=== PATIENT | female | born 1960 | race Caucasian/White ===

== ENCOUNTER → 2020-06-21 09:51 | Outpatient (BNVA) | payer BC, SELFPAY | PROVIDERS: PCP Internal Medicine; Visit Provider Internal Medicine Gastroenterology ==

== ENCOUNTER 2020-07-28 07:14 | Outpatient (REF) | payer OTHER, SELFPAY ==
[2020-07-28 11:08] LABS: MANUAL DIFF FLAG NO
[2020-07-28 11:24] LABS: Basophils Absolute Auto 0.1 X10*3/uL (0.0-0.2); Basophils Percent Auto 0.9 % (0-2); Eosinophils Absolute Auto 0.3 X10*3/uL (0.0-0.4); Eosinophils Percent Auto 5.7 % (0-4); Hematocrit 43.3 % (37-47); Hemoglobin 14.2 g/dl (12.0-16.0); Imm Gran Abs Auto 0.01 X10*3/uL (0.00-0.03); Imm Gran Pct Auto 0.2 % (0.0-0.4); Lymphocytes Absolute Auto 1.9 X10*3/uL (1.2-4.9); Lymphocytes Percent Auto 35.5 % (20-40); Mean Corpuscular HGB Conc 32.8 g/dl (31.0-35.0); Mean Corpuscular Hemoglobin 29.6 pg (27.0-33.0); Mean Corpuscular Volume 90.4 fL (80-98); Mean Platelet Volume 11.6 fL (9.4-12.3); Monocytes Absolute Auto 0.3 X10*3/uL (0.1-1.2); Monocytes Percent Auto 6.5 % (2-11); Neutrophils Absolute Auto 2.7 X10*3/uL (2.0-8.3); Neutrophils Percent Auto 51.2 % (45-73); Platelet Count 234 X10*3/uL (160-400); Red Blood Count 4.79 X10*6/uL (4.20-5.50); White Blood Count 5.3 X10*3/uL (4.8-10.8)
[2020-07-28 11:41] LABS: Alanine Aminotransferase 42 U/L (0-31); Albumin Level 4.6 g/dL (3.5-5.0); Alkaline Phosphatase 69 U/L (39-117); Anion Gap 13 (12-20); Aspartate Amino Transferase 32 U/L (5-31); Bilirubin Total 0.4 mg/dL (0.0-1.0); Blood Urea Nitrogen 12 mg/dL (9-16); C Reactive Protein 0.17 mg/dL (< or = 0.50); Calcium 9.2 mg/dL (8.4-10.2); Carbon Dioxide 27 mmol/L (22-29); Chloride 106 mmol/L (96-108); Estimated Glomerular Filt Rate > 60; Glucose Random 106 mg/dL (60-115); Potassium 4.1 mmol/L (3.3-5.1); Sodium 142 mmol/L (135-145)
[2020-07-30 00:47] LABS: Transglutaminase IgA 1 U/mL
== END 2020-07-28 07:15 | disposition home or self-care (01) ==
LOC: HO.HMGCLDS 07:14
PROVIDERS: PCP Internal Medicine; Visit Provider Internal Medicine Gastroenterology
DX: R10.9 Unspecified abdominal pain (principal)
CPT/HCPCS: 36415; 80053; 83516; 85025; 86140

== ENCOUNTER 2020-08-05 08:07 | Outpatient (REF) | payer OTHER, SELFPAY ==
--- NOTE | ~2020-08-05 | CT_ITS ---
EXAMINATION: CT ABDOMEN AND PELVIS WITH CONTRAST CLINICAL INFORMATION: Unspecified abdominal pain COMPARISON: None TECHNIQUE: Multidetector volumetric images were obtained from the superior aspect of the liver through the pubic symphysis following administration 85 mL of Omnipaque 350 intravenous contrast. Sagittal and coronal reformatted images were obtained on the technologist's workstation. Oral contrast: Yes This CT examination was performed using dose optimization techniques as appropriate, variously including the following: *Automated exposure control *Adjustment of mA and/or kV according to patient size (this includes techniques or standardized protocols for targeted exams where dose is matched to indication/reason for exam; i.e. extremities or head) *Use of iterative reconstruction technique DLP: 262 mGy-cm FINDINGS: LUNG BASES: The visualized lung bases are unremarkable. LIVER, GALLBLADDER, AND BILIARY TREE: The liver is normal in size, shape, and attenuation. There is a 1.4 cm cyst within hepatic segment 3 as well as two subcentimeter hypodensities at the liver dome which fall to small to characterize likely represent cysts. There is a small geographic region of low attenuation adjacent to the falciform ligament most compatible with fatty infiltration. There is no intra or extrahepatic duct dilation. The gallbladder surgically absent PANCREAS: Unremarkable. SPLEEN: Unremarkable. ADRENAL GLANDS: Unremarkable. KIDNEYS AND URETERS: The kidneys are normal in size, shape, and attenuation. No hydronephrosis, hydroureter, or calculi seen. No perinephric stranding. BLADDER: Unremarkable. GASTROINTESTINAL TRACT: Distal esophagus and stomach are unremarkable. The small and large bowel are normal in course and caliber. There is colonic diverticulosis throughout the sigmoid colon. There is equivocal mild wall thickening suggestive of chronic diverticular disease, though there are no inflammatory changes to suggest acute diverticulitis. There is a normal appendix. ABDOMINAL WALL: No significant hernia is appreciated. LYMPH NODES: Normal. VASCULAR: Unremarkable. PELVIC VISCERA: The uterus is retroflexed. The adnexa are unremarkable. OSSEOUS STRUCTURES: Minimal spondylotic endplate change. There is no acute or aggressive bony abnormality identified. CT/CT abdomen pelvis w con IMPRESSION: Sigmoid colonic diverticulosis. There is equivocal mild wall thickening suggestive of chronic diverticular disease, though there is no inflammatory change to suggest acute diverticulitis. Hepatic cysts and subcentimeter hypodensities which are too small to definitively characterize. Post cholecystectomy changes.
[2020-08-05] MEDS: Barium Sulfate Oral (Mocha) 450 ML ORAL.SUSP 900 ML PO (11:01)
== END 2020-08-05 08:08 | disposition home or self-care (01) ==
LOC: HO.CT 08:07
PROVIDERS: PCP Internal Medicine; Visit Provider Internal Medicine Gastroenterology
DX: R10.9 Unspecified abdominal pain (principal)
CPT/HCPCS: 74177; Q9967

== ENCOUNTER → 2020-08-30 12:54 | Outpatient (BNVA) | payer OTHER, SELFPAY | PROVIDERS: PCP Internal Medicine; Visit Provider Internal Medicine Gastroenterology ==

== ENCOUNTER 2020-09-16 08:48 | Outpatient (REF) | payer OTHER, SELFPAY ==
--- NOTE | ~2020-09-16 | XR_ITS ---
EXAMINATION: XR HIP, LEFT CLINICAL INFORMATION: Pain COMPARISON: None TECHNIQUE: Two views of the left hip. FINDINGS: Bone alignment is normal. No fracture or dislocation is seen. There may be mild axial joint space narrowing. No osteophytes or erosions are seen. The soft tissues are unremarkable. XR/XR hip LT min 2V IMPRESSION: Mild joint space narrowing otherwise unremarkable exam.
== END 2020-09-16 08:49 | disposition home or self-care (01) ==
LOC: HO.HMGCX 08:48
PROVIDERS: PCP Internal Medicine; Visit Provider Internal Medicine
DX: M25.552 Pain in left hip (principal)
CPT/HCPCS: 73502

== ENCOUNTER 2021-02-11 06:50 | Outpatient (REF) | payer OTHER, SELFPAY ==
[2021-02-11 11:48] LABS: Blood Urea Nitrogen 12 mg/dL (9-16); Estimated Glomerular Filt Rate > 60
== END 2021-02-11 06:51 | disposition home or self-care (01) ==
LOC: HO.HMGCLDS 06:50
PROVIDERS: PCP Internal Medicine; Visit Provider Internal Medicine
DX: R56.9 Unspecified convulsions (principal)
CPT/HCPCS: 36415; 82565; 84520

== ENCOUNTER 2021-02-15 14:11 | Outpatient (REF) | payer OTHER, SELFPAY ==
--- NOTE | ~2021-02-15 | MR_ITS ---
MR BRAIN WITHOUT AND WITH CONTRAST CLINICAL INFORMATION: Convulsions. COMPARISON: None available. TECHNIQUE: Multiplanar, multisequence MRI of the brain was obtained before and after the intravenous administration of 6 mL Gadavist. FINDINGS: There is no pathologic intracranial enhancement. Incidental developmental venous anomaly within the left centrum semiovale. There is no hydrocephalus, extra-axial surface collection, or herniation. Hippocampi are symmetric in size and normal in morphology without intrinsic signal abnormality. A few punctate foci of T2 signal change within the bifrontal white matter are nonspecific. The major flow voids at the skull base are preserved. There is no acute infarct on diffusion-weighted imaging. There is no intracranial hemorrhage on the gradient recalled echo acquisition. The midline structures are normal. The cerebellar tonsils are normally positioned. The cerebellum and brainstem are normal. The craniocervical junction is normal. Osseous marrow signal intensity is homogenous. The visualized soft tissues are unremarkable. MR/MR head/brain wo/w con IMPRESSION: - No acute intracranial findings. No enhancing lesions. No mesial temporal sclerosis. - A few punctate foci of T2 signal change within the bifrontal white matter are nonspecific.
== END 2021-02-15 14:12 | disposition home or self-care (01) ==
LOC: HO.MRI 14:11
PROVIDERS: PCP Internal Medicine; Visit Provider Internal Medicine
DX: R56.9 Unspecified convulsions (principal)
CPT/HCPCS: 70553; A9585

== ENCOUNTER 2021-03-17 15:21 | Outpatient (REF) | payer OTHER, SELFPAY ==
--- NOTE | ~2021-03-17 | US_ITS ---
EXAMINATION: US EXTRACRANIAL CAROTID DUPLEX, BILATERAL CLINICAL INFORMATION: Unspecified convulsions COMPARISON: None TECHNIQUE: Real-time ultrasound and Doppler techniques (integrating B-mode 2-D vascular images, Doppler spectral analysis and color-flow Doppler imaging) were utilized to interrogate the extracranial carotid arteries, the vertebral arteries and proximal subclavian arteries bilaterally. The degree of stenosis is determined by criteria similar to NASCET. FINDINGS: Right Side: 1. There is no significant atherosclerotic plaque seen in the bifurcation/proximal ICA region. 2. The common carotid artery PSV proximally is 77 cm/s and distally 70 cm/s. 3. The proximal internal carotid artery velocities are 57 cm/s systolic and 20 cm/s diastolic. 4. The proximal external carotid artery PSV is 71 cm/s. 5. The vertebral artery shows antegrade flow. 6. The subclavian artery waveforms are normal. Left Side: 1. There is no significant atherosclerotic plaque seen in the bifurcation/proximal ICA region. 2. The common carotid artery PSV proximally is 83 cm/s and distally 90 cm/s. 3. The proximal internal carotid artery velocities are 86 cm/s systolic and 33 cm/s diastolic. 4. The proximal external carotid artery PSV is 84 cm/s. 5. The vertebral artery shows antegrade flow. 6. The subclavian artery waveforms are normal. US/US carotid duplex BI IMPRESSION: 1. RIGHT: Normal right internal carotid artery without atherosclerotic plaque or hemodynamically significant stenosis. 2. LEFT: Normal left internal carotid artery without atherosclerotic plaque or hemodynamically significant stenosis.
== END 2021-03-17 15:22 | disposition home or self-care (01) ==
LOC: HO.US 15:21
PROVIDERS: PCP Internal Medicine; Visit Provider Internal Medicine
DX: R56.9 Unspecified convulsions (principal); E78.5 Hyperlipidemia, unspecified
CPT/HCPCS: 93880

== ENCOUNTER 2021-04-07 12:57 | Outpatient (REF) | payer OTHER, SELFPAY ==
--- NOTE | 2021-04-07 13:08 | EEG_ITS ---
The waking background activity consists of a diffuse moderate to high voltage dominant beta frequency which would possibly be a medication effect. Alpha frequencies at 8 hertz appear briefly over the left hemisphere towards the end of the recording. Low-voltage fast frequencies and muscle artifacts predominate anteriorly. Photic stimulation is without activation. Hyperventilation was omitted. No focal, lateralizing, or paroxysmal discharges seen. IMPRESSION: This waking EEG is considered within normal limits. Excessive beta frequency could be a medication effect. Clinical correlation is suggested. MD KRISTAL Boyd/MELISSA / [id number]
== END 2021-04-07 12:58 | disposition home or self-care (01) ==
LOC: HO.NEURO 12:57
PROVIDERS: Visit Provider Internal Medicine
DX: R56.9 Unspecified convulsions (principal)
CPT/HCPCS: 95816

== ENCOUNTER 2021-08-04 16:03 | Outpatient (REF) | payer OTHER, SELFPAY ==
--- NOTE | ~2021-08-04 | MM_ITS ---
EXAMINATION: MM SCREENING DIGITAL BREAST TOMOSYNTHESIS, BILATERAL CLINICAL INFORMATION: Screening. Asymptomatic. The lifetime risk of breast cancer based on the Tyrer-Cuzick Model is 8%. COMPARISON: Mammography: 10/24/2019, 09/27/2017, 08/07/2016. TECHNIQUE: Digital breast tomosynthesis is performed in both the craniocaudal and mediolateral oblique views along with computer-aided detection (CAD). Synthesized 2D images are generated from the tomosynthesis. FINDINGS: The breasts are heterogeneously dense, which may obscure small masses (ACR BI-RADS breast composition Category c). Parenchymal pattern is similar to prior exams. There is no developing density or interval mass or architectural abnormality or significant mass. There are scattered bilateral round and some vascular calcifications. The axilla and skin contours are unremarkable. No significant changes. MM/MM tomosynthesis screening BI IMPRESSION: No mammographic evidence of malignancy. ASSESSMENT: BI-RADS 2: Benign RECOMMENDATION: Routine annual mammography screening. This patient's information was entered into a reminder system with a target due date for their next mammogram.
== END 2021-08-04 16:04 | disposition home or self-care (01) ==
LOC: HO.MAMMO 16:03
PROVIDERS: PCP Internal Medicine; Visit Provider Internal Medicine
DX: Z12.31 Encounter for screening mammogram for malignant neoplasm of breast (principal)
CPT/HCPCS: 77063; 77067

== ENCOUNTER 2022-05-25 06:47 | Outpatient (REF) | payer OTHER, SELFPAY ==
[2022-05-25 11:21] LABS: MANUAL DIFF FLAG NO
[2022-05-25 11:34] LABS: Color Urine Yellow; Glucose Urine UA Negative (Negative); Leukocyte Esterase Urine Negative (Negative); Nitrite Urine Negative (Negative); PH 6.5 (5.0-9.0); Specific Gravity - Urine <= 1.005 (1.005-1.025); UMIC TRIGGER UA YES; Urine Blood Trace (Negative); Urine Ketones Negative (Negative); Urine Protein Negative (Neg-Trace)
[2022-05-25 11:37] LABS: Appearance Urine Clear
[2022-05-25 11:41] LABS: Bacteria Urine None Seen (None Seen); Hyaline Casts Urine 0-2 /LPF (0-2); RBC Urine 0-2 /HPF (0-2); Squamous Epithelial Cell Urine 0-2 /HPF (0-2); WBC Urine 0-5 /HPF (0-5)
[2022-05-25 11:45] LABS: Basophils Absolute Auto 0.1 X10*3/uL (0.0-0.2); Basophils Percent Auto 0.9 % (0-2); Eosinophils Absolute Auto 0.3 X10*3/uL (0.0-0.4); Eosinophils Percent Auto 4.6 % (0-4); Hematocrit 45.2 % (37.0-47.0); Hemoglobin 14.8 g/dl (12.0-16.0); Imm Gran Abs Auto 0.01 X10*3/uL (0.00-0.03); Imm Gran Pct Auto 0.2 % (0.0-0.4); Lymphocytes Absolute Auto 1.9 X10*3/uL (1.2-4.9); Lymphocytes Percent Auto 35.9 % (20-40); Mean Corpuscular HGB Conc 32.7 g/dl (31.0-35.0); Mean Corpuscular Hemoglobin 29.7 pg (27.0-33.0); Mean Corpuscular Volume 90.8 fL (80.0-98.0); Mean Platelet Volume 11.5 fL (9.4-12.3); Monocytes Absolute Auto 0.4 X10*3/uL (0.1-1.2); Monocytes Percent Auto 6.9 % (2-11); Neutrophils Absolute Auto 2.8 x10*3/uL (2.0-8.3); Neutrophils Percent Auto 51.5 % (45-73); Platelet Count 243 X10*3/uL (160-400); Red Blood Count 4.98 X10*6/uL (4.20-5.50); Red Cell Distribution Width 13.3 % (11.0-16.0); White Blood Count 5.4 X10*3/uL (4.8-10.8)
[2022-05-25 12:16] LABS: Alanine Aminotransferase 28 U/L (0-31); Albumin Level 4.7 g/dL (3.5-5.0); Alkaline Phosphatase 67 U/L (39-117); Anion Gap 13 (12-20); Aspartate Amino Transferase 25 U/L (5-31); Bilirubin Total 0.5 mg/dL (0.0-1.0); Blood Urea Nitrogen 12 mg/dL (9-16); Calcium 9.9 mg/dL (8.4-10.2); Carbon Dioxide 26 mmol/L (22-29); Chloride 107 mmol/L (96-108); Cholesterol 207 mg/dL; Estimated Glomerular Filt Rate > 60; Glucose Fasting 110 mg/dL (60-99); HDL Cholesterol 61 mg/dL; LDL Cholesterol Calculated 130 mg/dl; Sodium 142 mmol/L (135-145); Total Protein 7.1 g/dL (6.5-8.0); Triglycerides 82 mg/dL
[2022-05-25 12:20] LABS: TSH reflex Free T4 2.39 uIU/mL (0.32-4.0)
== END 2022-05-25 06:48 | disposition home or self-care (01) ==
LOC: HO.HMGCLDS 06:47
PROVIDERS: PCP Internal Medicine; Visit Provider Internal Medicine
DX: Z00.00 Encounter for general adult medical examination without abnormal findings (principal); R56.9 Unspecified convulsions; E78.5 Hyperlipidemia, unspecified
CPT/HCPCS: 36415; 80053; 80061; 81001; 84443; 85025

== ENCOUNTER 2022-06-06 10:28 | Outpatient (REF) | payer OTHER, SELFPAY ==
[2022-06-10 03:18] LABS: HPV mRNA E6/E7 Detected (Not Detected)
== END 2022-06-06 10:29 | disposition home or self-care (01) ==
LOC: HO.LNP 10:28
PROVIDERS: Visit Provider Internal Medicine
DX: Z01.419 Encounter for gynecological examination (general) (routine) without abnormal findings (principal); Z11.51 Encounter for screening for human papillomavirus (HPV)
CPT/HCPCS: 87624; 88142

== ENCOUNTER 2022-07-06 09:23 | Outpatient (REF) | payer OTHER, SELFPAY ==
[2022-07-06 15:07] LABS: CT PCR NOT DETECTED (Not Detect.); NG PCR NOT DETECTED (Not Detect.)
== END 2022-07-06 09:24 | disposition home or self-care (01) ==
LOC: HO.LNP 09:23
PROVIDERS: PCP Internal Medicine; Visit Provider Obstetrics & Gynecology
DX: R10.2 Pelvic and perineal pain (principal); B97.7 Papillomavirus as the cause of diseases classified elsewhere; R31.29 Other microscopic hematuria
CPT/HCPCS: 0353U; 87086

== ENCOUNTER 2022-07-25 11:15 | Outpatient (REF) | payer OTHER, SELFPAY ==
--- NOTE | ~2022-07-25 | US_ITS ---
EXAMINATION: US PELVIS CLINICAL INFORMATION: Pelvic and perineal pain. COMPARISON: CT abdomen and pelvis 08/05/2021. TECHNIQUE: Ultrasound of the pelvis is performed using both transabdominal and transvaginal transducers along with Doppler. Transvaginal imaging is performed due to inadequate visualization transabdominally. FINDINGS: Uterus: The uterus is anteverted and retroflexed and measures 7.0 x 3.7 x 4.6 cm. Uterine volume is 62 mL. There are nabothian cysts in the cervix. The double wall endometrial thickness is 3 mm. There is a right cornual fibroid measuring 2.3 x 1.8 x 2.1 cm. There is a midline fundal fibroid measuring 1.3 x 1.0 x 1.1 cm. Adnexa: The right ovary measures 1.5 x 1.2 x 1.6 cm, volume 1.5 mL. The right ovary appears normal. The left ovary measures 2.0 x 1.0 x 1.7 cm, volume 1.8 mL. There is a 1.1 cm coarse calcification, possibly representing a dermoid. In retrospect a similar finding is subtly visible on prior CT and there has likely been no significant change. US/US pelvic and transvaginal IMPRESSION: Fibroid uterus. Coarse calcification in the left ovary, possibly representing a dermoid. In retrospect a similar finding is subtly visible on prior CT and there has likely been no significant change.
== END 2022-07-25 11:16 | disposition home or self-care (01) ==
LOC: HO.US 11:15
PROVIDERS: PCP Internal Medicine; Visit Provider Obstetrics & Gynecology
DX: R10.2 Pelvic and perineal pain (principal)
CPT/HCPCS: 76830; 76856

== ENCOUNTER → 2022-08-08 10:08 | Outpatient (BNVA) | payer OTHER, SELFPAY | PROVIDERS: PCP Internal Medicine; Visit Provider Obstetrics & Gynecology | DX: Z13.89 Encounter for screening for other disorder (principal) ==

== ENCOUNTER 2022-08-09 06:30 | Outpatient (REF) | payer OTHER, SELFPAY ==
[2022-08-11 09:03] LABS: CA-125 10 U/mL (<35)
== END 2022-08-09 06:31 | disposition home or self-care (01) ==
LOC: HO.HMGCLDS 06:30
PROVIDERS: PCP Internal Medicine; Visit Provider Obstetrics & Gynecology
DX: N83.299 Other ovarian cyst, unspecified side (principal)
CPT/HCPCS: 36415; 86304

== ENCOUNTER 2022-08-10 16:06 | Outpatient (REF) | payer OTHER, SELFPAY ==
--- NOTE | ~2022-08-10 | MM_ITS ---
EXAMINATION: MM SCREENING DIGITAL BREAST TOMOSYNTHESIS, BILATERAL CLINICAL INFORMATION: Screening. Asymptomatic. The lifetime risk of breast cancer based on the Tyrer-Cuzick Model is 10.5%. COMPARISON: Mammography: August 04, 2021 and studies dating back to August 07, 2016 TECHNIQUE: Digital breast tomosynthesis is performed in both the craniocaudal and mediolateral oblique views along with computer-aided detection (CAD). Synthesized 2D images are generated from the tomosynthesis. FINDINGS: The breasts are heterogeneously dense, which may obscure small masses (ACR BI-RADS breast composition Category c). There are no new significant masses, abnormal calcifications, or other abnormalities. MM/MM tomosynthesis screening BI IMPRESSION: No significant changes from prior exam. ASSESSMENT: BI-RADS 1: Negative RECOMMENDATION: Routine annual mammography screening. This patient's information was entered into a reminder system with a target due date for their next mammogram.
== END 2022-08-10 16:07 | disposition home or self-care (01) ==
LOC: HO.MAMMO 16:06
PROVIDERS: PCP Internal Medicine; Visit Provider Internal Medicine
DX: Z12.31 Encounter for screening mammogram for malignant neoplasm of breast (principal)
CPT/HCPCS: 77063; 77067

== ENCOUNTER 2022-09-08 12:59 | Outpatient (REF) | payer OTHER, SELFPAY ==
--- NOTE | ~2022-09-08 | MR_ITS ---
EXAMINATION: MR PELVIS WITHOUT AND WITH CONTRAST CLINICAL INFORMATION: Ovarian cyst COMPARISON: 07/25/2022 ultrasound and 08/05/2020 CT scan TECHNIQUE: Multiple routine MRI sequences through the pelvis were obtained on a high-field 1.5 Brenda MRI. Pre and postcontrast images were evaluated. 9 mL of Gadavist intravenous contrast was utilized without incident. FINDINGS: Uterus is retroverted and retroflexed measuring 6.4 x 3.9 x 5.2 cm in size. Endometrial cavity is unremarkable. Endometrial stripe is thin and distinct. Several small T2 dark intramural fibroids are noted. The largest of these is a 1.7 cm anterior right fundal fibroid which demonstrates mild postcontrast enhancement. The left ovary is difficult to separate from the adjacent sigmoid colon but measures approximately 1.7 x 0.9 x 1.2 cm in size. There are a few tiny precontrast T1 bright foci seen within the ovary suggesting tiny regions of blood products. There is no discrete mass otherwise. No abnormal enhancement or irregularity. Extensive colonic diverticulosis more so in the sigmoid colon. Bladder is decompressed and unremarkable. No acute bony abnormality. The contralateral right ovary is also difficult to separate from adjacent structures but measures approximately 1.5 x 1.3 x 1.1 cm in size. MR/MR pelvis wo/w con IMPRESSION: 1. Small intramural uterine fibroids as described above. The left ovary is difficult to separate from the adjacent sigmoid colon. There are a few tiny precontrast T1 bright foci within the left ovary suggesting tiny regions of blood products. But no discrete mass lesion or abnormal enhancement is appreciated on MRI. The small calcification suggested on the ultrasound would not be apparent on the MR. 2. Extensive colonic diverticulosis.
== END 2022-09-08 13:00 | disposition home or self-care (01) ==
LOC: HO.MRI 12:59
PROVIDERS: PCP Internal Medicine; Visit Provider Obstetrics & Gynecology
DX: N83.299 Other ovarian cyst, unspecified side (principal)
CPT/HCPCS: 72197; A9585

== ENCOUNTER → 2022-09-21 09:46 | Outpatient (BNVA) | payer OTHER, SELFPAY | PROVIDERS: PCP Internal Medicine; Visit Provider Obstetrics & Gynecology ==

== ENCOUNTER 2023-02-14 10:50 | Outpatient (REF) | payer OTHER, SELFPAY ==
--- NOTE | ~2023-02-14 | US_ITS ---
EXAMINATION: US PELVIS COMPLETE CLINICAL INFORMATION: Ovarian calcification COMPARISON: None TECHNIQUE: Transabdominal and transvaginal imaging was performed. FINDINGS: The uterus is of normal size and echogenicity measuring 7.3 x 3.5 x 4.8 cm. Uterus is retroflexed in position. A regular homogeneous endometrium is identified measuring 0.3 cm. A 1.7 cm intramural myoma in the posterior body decreased from prior previously 2.3 cm and a 1.1 cm intramural myoma in the left body decreased from prior study 1.3 cm. Nabothian cysts in the cervix. Both ovaries are of normal size. The right measures 1.8 x 1.5 x 1.0 cm for a volume of 1.4 mL. The left measures 2.3 x 0.9 x 2.2 cm for a volume of 2.4 mL. Again seen is a 1.1 cm echogenic shadowing focus in the left ovary which remains sonographically suspicious for an ovarian dermoid without prior correlate on MR, previously 1.1 cm on prior ultrasound not significantly changed. There is no pelvic free fluid. US/US pelvic and transvaginal IMPRESSION: 1. Again seen is a 1.1 cm echogenic shadowing focus in the left ovary which remains sonographically suspicious for an ovarian dermoid without prior correlate on MR, not significantly changed from prior ultrasound. Recommend annual follow-up ultrasound. 2. Two small intramural myomas decreased in size from prior.
== END 2023-02-14 10:51 | disposition home or self-care (01) ==
LOC: HO.US 10:50
PROVIDERS: PCP Internal Medicine; Visit Provider Obstetrics & Gynecology
DX: N83.8 Other noninflammatory disorders of ovary, fallopian tube and broad ligament (principal)
CPT/HCPCS: 76830; 76856

== ENCOUNTER 2023-02-27 09:12 | Outpatient (AMB) | payer OTHER, SELFPAY ==
[2023-02-27 09:14] VITALS: BP 112/74; BMI 25.4
--- NOTE | 2023-02-27 09:14 | MHC.OFFVIS ---
Intake Vital Signs 02/27/23 09:14 Height 5 ft 2 in Weight 139 lb BMI 25.4 BP 112/74 Intake Visit Reasons: US Follow Up Allergies penicillin V Allergy (Unknown, Verified 02/27/23 09:15) hives Erythromycin Allergy (Unknown, Uncoded 09/21/22 09:50) gi upset HPI HPI Comments History of Present Illness Details Presenting for ultrasound follow-up. Pelvic ultrasound done recently showed the following: The uterus is of normal size and echogenicity measuring 7.3 x 3.5 x 4.8 cm. Uterus is retroflexed in position. A regular homogeneous endometrium is identified measuring 0.3 cm. A 1.7 cm intramural myoma in the posterior body decreased from prior previously 2.3 cm and a 1.1 cm intramural myoma in the left body decreased from prior study 1.3 cm. Nabothian cysts in the cervix. Both ovaries are of normal size. The right measures 1.8 x 1.5 x 1.0 cm for a volume of 1.4 mL. The left measures 2.3 x 0.9 x 2.2 cm for a volume of 2.4 mL. Again seen is a 1.1 cm echogenic shadowing focus in the left ovary which remains sonographically suspicious for an ovarian dermoid without prior correlate on MR, previously 1.1 cm on prior ultrasound not significantly changed. There is no pelvic free fluid. US/US pelvic and transvaginal IMPRESSION: 1. Again seen is a 1.1 cm echogenic shadowing focus in the left ovary which remains sonographically suspicious for an ovarian dermoid without prior correlate on MR, not significantly changed from prior ultrasound. Recommend annual follow-up ultrasound. 2. Two small intramural myomas decreased in size from prior. CA 125 in 08/10 was within were [facility] Medical History HPV (human papilloma virus) infection Seizure Hip pain, left Tubular adenoma of colon Migraines Hyperlipidemia GERD (gastroesophageal reflux disease) Right sided abdominal pain Surgical History History of cholecystectomy History of esophagogastroduodenoscopy (EGD) Hx of colonoscopy Hx of oral surgery Family History Father Throat cancer Substance use disorder Mother Cardiac arrest Social History Household Members: Spouse Housing: House Alcohol intake: current Alcohol intake frequency: holidays/special occasions only Patient Tobacco Use Status: Former Tobacco user Years Smoked: 10 yrs e-Cigarette/Vaping Use: Never Used Substance Use Type: Marijuana Current occupational status: employed Cognitive needs: No Hearing needs: No Vision needs: Yes Review of Systems Const All systems reviewed & are unremarkable except as noted in HPI and below Reports as per HPI and Reports no additional complaints GI Reports no additional complaints Reports no additional complaints Physical Exam Vital Signs: Last Vital Signs BP 112/74 02/27/23 09:14 BMI result Body Mass Index 25.4 Assessment & Plan Assessment & Plan (1) Complex ovarian cyst: Comment: calcification possible dermoid by ultrasound Code(s): N83.299 - Other ovarian cyst, unspecified side Plan: Discussed with the patient the ovarian calcification by ultrasound, possible dermoid. Discussed with the patient the Ultrasound findings, the main limitation of transvaginal ultrasonography alone as a diagnostic tool to distinguish benign from malignant masses relates to its lack of specificity and low positive predictive value for cancer. The differential diagnosis discussed with the patient includes the following but not limited to: benign and malignant gynecological and non-gynecological causes. Will repeat CA 125. Discussed with the patient that CA 125 is a protein associated with epithelial ovarian malignancies, but also frequently expressed at lower levels by nonmalignant tissue. Elevation of CA 125 levels may occur in nonmalignant gynecologic conditions, and in non-gynecologic cancers, It is most useful in postmenopausal women and in identifying non mucinous epithelial cancer. The CA 125 level is elevated in 80% of patients with epithelial ovarian cancer but in only 50% of patients with stage I disease. The overall sensitivity of CA 125 testing in distinguishing benign from malignant adnexal masses reportedly ranges from 61% to 90%; discussed with the patient the specificity, positive predictive value and negative predictive value. Discussed with the patient options of treatment , in case CA 125 is not elevated, including laparoscopy ovarian cystectomy/oophorectomy vs. expectant management with repeat US in repeating pelvic US in 12 weeks from previous US. If the ovarian complex cyst is persistent larger and / or more complex looking, or higher CA 125 will refer to gynecologic Oncology. All pros, cons, risks and benefits of each approach were discussed with the patient including but not limited to a delay in the diagnosis and treatment of ovarian cancer affecting the prognosis; The patient decided to go ahead with expectant management. Instructions given the patient to schedule a 3 months follow-up ultrasound appointment. All questions were answered & the patient verbalized understanding and agreed with the plan. (2) Myoma: Code(s): D21.9 - Benign neoplasm of connective and other soft tissue, unspecified Plan: Discussed with the patient the findings on pelvic ultrasound & the risk of myosarcoma; discussed with the patient the options of treatment including expectant management versus hysterectomy; the pros and cons, risks benefits of each approach were discussed with the patient including the fact that in cases of myosarcoma, surgical treatment can lead to early diagnosis and positively affects the prognosis; after further discussion, the patient decided to proceed with expectant management. Will repeat pelvic ultrasound periodically. Instructions given to patient to call in case any of the following occurs: pressure symptoms, abnormal uterine bleeding, pelvic pain; and to schedule a future office follow-up appointment for reassessment and to order a repeat ultrasound . All questions answered, the patient verbalized understanding and agreed with the plan . Coding Level of Care Code Est Pt Level 3 (16915) Diagnoses Complex ovarian cyst N83.299 Myoma D21.9
== END 2023-02-27 09:31 | disposition home or self-care (01) ==
PROVIDERS: Visit Provider Obstetrics & Gynecology
DX: N83.299 Other ovarian cyst, unspecified side (principal); D21.9 Benign neoplasm of connective and other soft tissue, unspecified
CPT/HCPCS: 99213

== ENCOUNTER → 2023-02-27 09:12 | Outpatient (BNVA) | payer OTHER, SELFPAY | PROVIDERS: Visit Provider Obstetrics & Gynecology ==

== ENCOUNTER 2023-02-28 06:28 | Outpatient (REF) | payer OTHER, SELFPAY ==
[2023-03-02 10:13] LABS: CA-125 12 U/mL (<35)
== END 2023-02-28 06:29 | disposition home or self-care (01) ==
LOC: HO.HMGCLDS 06:28
PROVIDERS: Obstetrics & Gynecology; PCP Internal Medicine; Visit Provider Internal Medicine
DX: R73.9 Hyperglycemia, unspecified (principal); E78.5 Hyperlipidemia, unspecified; N83.8 Other noninflammatory disorders of ovary, fallopian tube and broad ligament
CPT/HCPCS: 36415; 80053; 80061; 83036; 85025; 86304

== ENCOUNTER 2023-03-07 09:48 | Outpatient (AMB) | payer OTHER, SELFPAY ==
--- NOTE | 2023-03-07 10:02 | MHC.PC.OV ---
Vital Signs 03/07/23 10:03 Height 5 ft 2 in Weight 140 lb BMI 25.6 BP 126/70 Blood Pressure Location Lt brachial Position Sitting Pulse 77 Pulse Source Pulse Oximeter Pulse Oximetry (%) 97 Oxygen Delivery Method Room Air Intake Visit Reasons: 6 Month follow up Intake Note: Pt is here today for her 6mo. f/u Allergies penicillin V Allergy (Unknown, Verified 02/27/23 09:15) hives Erythromycin Allergy (Unknown, Uncoded 09/21/22 09:50) gi upset Medication List - Last Reconciled 03/07/23 by Leticia Stanley MD pravastatin 30 mg (1.5 x 20 mg) PO DAILY triamcinolone acetonide 0.1% 1 appl topical DAILY Tobacco use date assessed: 03/07/23 Dental Screening Dental Screen Date: 03/07/23 Did you have a dental visit in the last 12 months?: Yes Did you have a dental problem in the last 6 months where you did not have access to dental care?: Yes Was dental information given to patient?: Patient has dentist HPI 6 Month follow up HPI Details Patient presents for the follow-up of hyperlipidemia. FORMERLY [facility], [facility] Medical History HPV (human papilloma virus) infection Seizure Hip pain, left Tubular adenoma of colon Migraines Hyperlipidemia GERD (gastroesophageal reflux disease) Right sided abdominal pain Surgical History History of cholecystectomy History of esophagogastroduodenoscopy (EGD) Hx of colonoscopy Hx of oral surgery Family History Father Throat cancer Substance use disorder Mother Cardiac arrest Social History Household Members: Spouse Housing: House Alcohol intake: current Alcohol intake frequency: holidays/special occasions only Patient Tobacco Use Status: Former Tobacco user Years Smoked: 10 yrs e-Cigarette/Vaping Use: Never Used Substance Use Type: Marijuana Current occupational status: employed Cognitive needs: No Hearing needs: No Vision needs: Yes Questionnaire Thrive Questionnaire Date Thrive assessed: 06/06/22 AUDIT C Alcohol Use Questionnaire (AUDIT-C) 1. How often do you have a drink containing alcohol?: Monthly or less 2. How many drinks containing alcohol do you have on a typical day when you are drinking?: 1 or 2 3. How often do you have six or more drinks on one occasion?: Never Total Score: 1 KELLY-7 AMB Questionnaire KELLY-7 Date KELLY - 7 assessed: 06/06/22 Source: Developed by Drs. Jamal Cleaning, Isela Schwarz, Manolo Waggoner and colleagues, with an educational haider from [employer] Review of Systems Const All systems reviewed & are unremarkable except as noted in HPI and below Reports no additional complaints Eyes Reports no additional complaints ENT Reports no additional complaints Card Reports no additional complaints Resp Reports no additional complaints GI Reports no additional complaints Reports no additional complaints Physical exam (Primary Care) Vital Signs: Last Vital Signs Pulse 77 03/07/23 10:03 BP 126/70 03/07/23 10:03 Pulse Ox 97 03/07/23 10:03 Oxygen Delivery Method Room Air 03/07/23 10:03 BMI result Body Mass Index 25.6 Tobacco/Smoking Status: Tobacco use Status Tobacco use date assessed 03/07/23 03/07/23 10:06 Patient Tobacco Use Status Former Tobacco user 03/07/23 10:06 e-Cigarette/Vaping Use Never Used 03/07/23 10:06 Thrive Assessment: Date of Thrive Assessment Date Thrive assessed 06/06/22 03/07/23 10:06 Const General: no acute distress HENMT Face and sinus: Yes normal facial exam Throat: Yes posterior oropharynx normal Resp Effort & Inspection: normal respiratory effort Auscultation: clear to auscultation bilaterally Cardio Rhythm: regular rhythm Heart sounds: S1 normal heart sound present and S2 normal heart sound present GI Palpation (GI): Soft to palpation Assessment and Plan Assessment & Plan (1) Hyperlipidemia: Code(s): E78.5 - Hyperlipidemia, unspecified Plan: Continue statin low-cholesterol diet return in 6 months with a fasting labs before (2) Annual physical exam: Code(s): Z00.00 - Encounter for general adult medical examination without abnormal findings (3) Hyperglycemia: Code(s): R73.9 - Hyperglycemia, unspecified Plan: ADA diet regular exercise weight loss discussed with the patient return in 6 months for physical Orders: Orders Hemoglobin A1c 6 Months E78.5 - Hyperlipidemia, unspecified, R73.9 - Hyperglycemia, unspecified, Z00.00 - Encounter for general adult medical examination without abnormal findings Comprehensive [place]. Panel Fast 6 Months E78.5 - Hyperlipidemia, unspecified, R73.9 - Hyperglycemia, unspecified, Z00.00 - Encounter for general adult medical examination without abnormal findings Complete Blood Count Auto Diff 6 Months E78.5 - Hyperlipidemia, unspecified, R73.9 - Hyperglycemia, unspecified, Z00.00 - Encounter for general adult medical examination without abnormal findings Lipid Panel 6 Months E78.5 - Hyperlipidemia, unspecified, R73.9 - Hyperglycemia, unspecified, Z00.00 - Encounter for general adult medical examination without abnormal findings Medications: Changed From pravastatin 20 mg PO DAILY 90 tabs 0RF To pravastatin 30 mg (1.5 x 20 mg) PO DAILY 135 tabs 3RF Coding Level of Care Code Est Pt Level 3 (28873) Diagnoses Hyperlipidemia E78.5 Annual physical exam Z00.00 Hyperglycemia R73.9
[2023-03-07 10:03] VITALS: BP 126/70; PULSE 77; O2SAT 97; BMI 25.6
== END 2023-03-07 11:51 | disposition home or self-care (01) ==
PROVIDERS: PCP Internal Medicine; Visit Provider Internal Medicine
DX: E78.5 Hyperlipidemia, unspecified (principal); Z00.00 Encounter for general adult medical examination without abnormal findings; R73.9 Hyperglycemia, unspecified
CPT/HCPCS: 99213

== ENCOUNTER 2023-07-10 08:23 | Outpatient (AMB) | payer OTHER, SELFPAY ==
[2023-07-10 08:30] VITALS: BP 110/70; BMI 25.2
--- NOTE | 2023-07-10 08:30 | A.OFFVIS_ITS ---
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 No complaints. Last pelvic ultrasound done in 02/10 showed the following: IMPRESSION: 1. Again seen is a 1.1 cm echogenic sha dowing focus in the left ovary which remains sonographically suspicious for an ovarian dermoid without prior correlate on MR, not significantly changed from prior ultrasound. Recommend annual follow-up ultrasound. 2. Two small intramural myomas decrease d in size from prior. CA 125 in 08/10 and 03/12 were both within normal Last Pap/HPV was negative/HPV E6/E7 positive, no HPV 16/18/45 done Last Mammogram was be 1 in 08/10 Last Colonoscopy was few months ago, the recommendation was to repeat in 5 years [facility] Medical History HPV (human papilloma virus) infection Seizure Hip pain, left Tubular adenoma of colon Migraines Hyperlipidemia GERD (gastroesophageal reflux disease) Right sided abdominal pain Surgical History History of cholecystectomy History of esophagogastroduodenoscopy (EGD) Hx of colonoscopy Hx of oral surgery Family History Father Throat cancer Substance use disorder Mother Cardiac arrest Social History Household Members: Spouse Housing: House Alcohol intake: current Alcohol intake frequency: holidays/special occasions only Patient Tobacco Use Status: Former Tobacco user Years Smoked: 10 yrs e-Cigarette/Vaping Use: Never Used Substance Use Type: Marijuana Current occupational status: employed Current occupation: Medical records Cognitive needs: No Hearing needs: No Vision needs: Yes Female Reproductive History Menstrual Total pregnancies: 2 Full term: 2 Number of Living Children: 2 Date of last pap smear: 06/06/22 History of abnormal pap smear: Yes (HPV +) Date of Mammogram: 08/10/22 Review of Systems Const All systems reviewed & are unremarkable except as noted in HPI and below Card Reports as per HPI Resp Reports as per HPI GI Reports as per HPI and Reports no additional complaints Reports as per HPI Physical Exam Const General: cooperative, healthy appearing and comfortable Chest Chest palpation & inspection: normal inspection of the chest and normal palpation of entire chest wall Breast/axilla inspection: normal inspection of the breasts and normal inspection of the axillae Breast/axilla palpation: normal palpation of the breasts, normal palpation of the axillae and no axillary lymphadenopathy Resp Effort & Inspection: normal respiratory effort Auscultation: clear to auscultation bilaterally Percussion: percussion normal Cardio Palpation: normal PMI Rate: regular rate Rhythm: regular rhythm Heart sounds: no murmurs and no rubs Peripheral pulses: Peripheral pulses 2+ throughout GI Inspection: Yes normal to inspection Palpation (GI): Soft to palpation, nontender, no guarding, not rigid and No hepatosplenomegaly present Percussion: Yes normal to percussion Auscultation: normal bowel sounds Rectal Exam - Female: deferred General: Yes bladder normal to palpation External Female Exam: No lesion Speculum Exam - Vagina: normal appearance of the vagina, normal palpation, normal vaginal discharge and not erythematous Speculum Exam - Cervix: normal appearance of the cervix and normal palpation Bimanual exam- vagina & uterus: normal bimanual exam, normal palpation, uterine size normal, bladder normal to palpation, consistency normal and normal palpation Bimanual Exam- Adnexa, other: normal adnexae, no masses and no tenderness Assessment & Plan Assessment & Plan (1) Complex ovarian cyst: Comment: calcification possible dermoid by ultrasound Code(s): N83.299 - Other ovarian cyst, unspecified side Plan: Pelvic ultrasound ordered, instructions given the patient to schedule a 2 week ultrasound follow-up appointment (2) Myoma: Code(s): D21.9 - Benign neoplasm of connective and other soft tissue, unspecified Plan: Pelvic ultrasound ordered, instructions given the patient to schedule a 2 week ultrasound follow-up appointment (3) Well woman exam: Comment: HPV positive/negative Pap in 2022 Code(s): Z01.419 - Encounter for gynecological examination (general) (routine) without abnormal findings Plan: Co testing done since last Pap smear was negative/HPV E6/E7 positive Counseled the patient about the recommended dietary allowance of 1200 mg of Calcium & 600 IU of vitamin D. Mammogram ordered. The patient was instructed to perform monthly self-breast exams and schedule annual exam in a year. All questions answered and the patient verbalized understanding. Orders: Orders MM tomosynthesis screening BI Today Z12.31 - Encounter for screening mammogram for malignant neoplasm of breast US pelvic and transvaginal Today D21.9 - Benign neoplasm of connective and other soft tissue, unspecified, N83.299 - Other ovarian cyst, unspecified side Coding Level of Care Code Est Pt Prev Care 40-64y(55764) Diagnoses Complex ovarian cyst N83.299 Myoma D21.9 Well woman exam Z01.419
== END 2023-07-10 08:52 | disposition home or self-care (01) ==
PROVIDERS: Visit Provider Obstetrics & Gynecology
DX: Z01.419 Encounter for gynecological examination (general) (routine) without abnormal findings (principal); D25.9 Leiomyoma of uterus, unspecified; N83.299 Other ovarian cyst, unspecified side
CPT/HCPCS: 99396

== ENCOUNTER 2023-07-10 08:23 | Outpatient (REF) | payer OTHER, SELFPAY ==
[2023-07-14 03:59] LABS: HPV mRNA E6/E7 rflx Not Detected (Not Detected)
== END 2023-07-10 08:24 | disposition home or self-care (01) ==
LOC: HO.LNP 08:23
PROVIDERS: Visit Provider Obstetrics & Gynecology
DX: Z01.419 Encounter for gynecological examination (general) (routine) without abnormal findings (principal); Z11.51 Encounter for screening for human papillomavirus (HPV); N83.299 Other ovarian cyst, unspecified side
CPT/HCPCS: 87624; 88142

== ENCOUNTER 2023-07-26 11:18 | Outpatient (REF) | payer OTHER, SELFPAY ==
--- NOTE | ~2023-07-26 | US_ITS ---
EXAMINATION: US PELVIS CLINICAL INFORMATION: Ovarian cysts. COMPARISON: Pelvic ultrasound 02/14/2023. Pelvic MRI 09/08/2022. CT abdomen and pelvis 08/05/2020. TECHNIQUE: Ultrasound of the pelvis is performed using both transabdominal and transvaginal transducers along with Doppler. Transvaginal imaging is performed due to inadequate visualization transabdominally. FINDINGS: Uterus: The uterus is retroverted and measures 6.7 x 3.4 x 5.5 cm. Nabothian cysts are present in the cervix. The double wall endometrial thickness is 2 mm. The uterus is smooth in contour and has normal myometrial echogenicity. 3 uterine fibroids are seen ranging in size from 0.5 cm to 1.8 cm. At the time of the prior study only 2 fibroids were seen and the smallest 0.5 mm fibroid is new. Adnexa: Both ovaries are visualized. There is normal color flow to the adnexa. There is no ovarian torsion. There is no pelvic ascites or fluid collection. Right ovary measures 1.7 x 1.7 x 1.3 cm for a volume of 2.0 mL. Left ovary measures 2.1 x 0.8 x 1.3 cm for a volume 1.1 mL. Echogenic foci are again seen in the left ovary with probable cluster of calcifications measuring 1.1 x 0.6 x 0.9 cm, similar to prior. US/US pelvic and transvaginal IMPRESSION: 1. Uterine fibroids. 2. Stable left ovarian calcifications.
== END 2023-07-26 11:19 | disposition home or self-care (01) ==
LOC: HO.US 11:18
PROVIDERS: PCP Internal Medicine; Visit Provider Obstetrics & Gynecology
DX: N83.299 Other ovarian cyst, unspecified side (principal); D21.9 Benign neoplasm of connective and other soft tissue, unspecified
CPT/HCPCS: 76830; 76856

== ENCOUNTER 2023-08-30 07:00 | Outpatient (REF) | payer OTHER, SELFPAY ==
[2023-08-30 10:11] LABS: MANUAL DIFF FLAG NO
[2023-08-30 10:24] LABS: Basophils Percent Auto 0.6 % (0-2); Eosinophils Absolute Auto 0.3 X10*3/uL (0.0-0.4); Eosinophils Percent Auto 4.7 % (0-4); Hematocrit 43.7 % (37.0-47.0); Hemoglobin 14.9 g/dl (12.0-16.0); Imm Gran Abs Auto 0.01 X10*3/uL (0.00-0.03); Imm Gran Pct Auto 0.2 % (0.0-0.4); Lymphocytes Absolute Auto 2.2 X10*3/uL (1.2-4.9); Lymphocytes Percent Auto 33.2 % (20-40); Mean Corpuscular HGB Conc 34.1 g/dl (31.0-35.0); Mean Corpuscular Hemoglobin 29.8 pg (27.0-33.0); Mean Corpuscular Volume 87.4 fL (80.0-98.0); Mean Platelet Volume 11.5 fL (9.4-12.3); Monocytes Absolute Auto 0.4 X10*3/uL (0.1-1.2); Monocytes Percent Auto 6.4 % (2-11); Neutrophils Absolute Auto 3.6 x10*3/uL (2.0-8.3); Neutrophils Percent Auto 54.9 % (45-73); Platelet Count 256 X10*3/uL (160-400); Red Cell Distribution Width 13.4 % (11.0-16.0); White Blood Count 6.6 X10*3/uL (4.8-10.8)
[2023-08-30 11:00] LABS: Estimated Average Glucose 114 mg/dL; Hemoglobin A1c % 5.6 % (<6.0)
[2023-08-30 11:24] LABS: Alanine Aminotransferase 29 U/L (0-31); Albumin Level 4.4 g/dL (3.5-5.0); Alkaline Phosphatase 65 U/L (39-117); Anion Gap 13 (12-20); Aspartate Amino Transferase 26 U/L (5-31); Bilirubin Total 0.5 mg/dL (0.0-1.0); Blood Urea Nitrogen 10 mg/dL (9-16); Calcium 9.4 mg/dL (8.4-10.2); Carbon Dioxide 25 mmol/L (22-29); Chloride 107 mmol/L (96-108); Cholesterol 203 mg/dL (<200); Estimated Glomerular Filt Rate > 60; Glucose Fasting 121 mg/dL (60-99); HDL Cholesterol 59 mg/dL (>40); LDL Cholesterol Calculated 120 mg/dL (<100); Sodium 141 mmol/L (135-145); Total Protein 7.2 g/dL (6.5-8.0); Triglycerides 123 mg/dL (<150)
== END 2023-08-30 07:01 | disposition home or self-care (01) ==
LOC: HO.HMGCLDS 07:00
PROVIDERS: PCP Internal Medicine; Visit Provider Internal Medicine
DX: Z00.00 Encounter for general adult medical examination without abnormal findings (principal); R73.9 Hyperglycemia, unspecified; E78.5 Hyperlipidemia, unspecified
CPT/HCPCS: 36415; 80053; 80061; 83036; 85025

== ENCOUNTER 2023-09-04 08:25 | Outpatient (AMB) | payer OTHER, SELFPAY ==
--- NOTE | 2023-09-04 08:40 | MHC.PC.OV ---
Vital Signs 09/04/23 08:46 Height 5 ft 2 in Weight 140 lb BMI 25.6 BP 110/74 Blood Pressure Location Lt brachial Position Sitting Pulse 67 Pulse Source Pulse Oximeter Pulse Oximetry (%) 98 Oxygen Delivery Method Room Air Intake Visit Reasons: Annual PE Intake Note: Pt is here today for PE. Allergies penicillin V Allergy (Unknown, Verified 09/04/23 08:48) hives Erythromycin Allergy (Unknown, Uncoded 09/04/23 08:48) gi upset Medication List - Last Reconciled 09/04/23 by Leticia Stanley MD pravastatin 20 mg PO DAILY pravastatin 10 mg PO DAILY triamcinolone acetonide 0.1% 1 appl topical DAILY Tobacco use date assessed: 09/04/23 Dental Screening Dental Screen Date: 09/04/23 Did you have a dental visit in the last 12 months?: Yes Did you have a dental problem in the last 6 months where you did not have access to dental care?: No Was dental information given to patient?: Patient has dentist HPI Annual PE HPI Details Pt presents for PE. PFSH Medical History HPV (human papilloma virus) infection Seizure Hip pain, left Tubular adenoma of colon Migraines Hyperlipidemia GERD (gastroesophageal reflux disease) Right sided abdominal pain Surgical History (Updated 09/04/23 @ 09:17 by Leticia Stanley MD) History of cholecystectomy History of esophagogastroduodenoscopy (EGD) Hx of colonoscopy Hx of oral surgery Family History Father Throat cancer Substance use disorder Mother Cardiac arrest Social History Household Members: Spouse Housing: House Alcohol intake: current Alcohol intake frequency: holidays/special occasions only Patient Tobacco Use Status: Former Tobacco user Years Smoked: 10 yrs e-Cigarette/Vaping Use: Never Used Substance Use Type: Marijuana service: No Current occupational status: employed Current occupation: Medical records Cognitive needs: No Hearing needs: No Vision needs: Yes Questionnaire PHQ-9 Over the last 2 weeks, how often have you been bothered by any of the following problems? 1. Little interest or pleasure in doing things: not at all 2. Feeling down, depressed, or hopeless: not at all 3. Trouble falling or staying asleep, or sleeping too much: more than half the days 4. Feeling tired or having little energy: not at all 5. Poor appetite or overeating: not at all 6. Feeling bad about yourself - or that you are a failure or have let yourself or your family down: not at all 7. Trouble concentrating on things, such as reading the newspaper or watching television: not at all 8. Moving or speaking so slowly that other people could have noticed. Or the opposite - being so fidgety or restless that you have been moving around a lot more than usual: not at all 9. Thoughts that you would be better off or of hurting yourself in some way: not at all Total score: 2 Depression Screening Interpretation: Negative Depression Screening Done: Yes Source: Developed by Drs. Jamal lCeaning, Isela Schwarz, Manolo Waggoner and colleagues, with an educational haider from [employer]. Thrive Questionnaire Date Thrive assessed: 09/04/23 I am a: Patient What is your living situation today?: I have a steady place to live Within the past 12 months, did the food you bought not last and you didn't have the money to get more?: Never true Within the past 12 months, did you worry whether your food would run out before you got money to buy more?: Never true Do you have trouble paying for medicines?: No Do you have trouble getting transportation to medical appointments?: No Do you have trouble paying your heating and electricity bill?: No Do you have trouble taking care of your child, family member or friend?: No Do you have trouble with day-to-day activities such as bathing, preparing meals, shopping, managing finances, etc.?: No Are you currently unemployed and looking for a job?: No Are you interested in more education?: No Please select the resources that you would like help with: None THRIVE Score: 0 AUDIT C Alcohol Use Questionnaire (AUDIT-C) 1. How often do you have a drink containing alcohol?: Monthly or less 2. How many drinks containing alcohol do you have on a typical day when you are drinking?: 1 or 2 3. How often do you have six or more drinks on one occasion?: Never Total Score: 1 KELLY-7 AMB Questionnaire KELLY-7 Date KELLY - 7 assessed: 09/04/23 Feeling nervous, anxious, or on edge: 0 = Not at all Not being able to stop or control worryin = Not at all Worrying too much about different things: 0 = Not at all Trouble relaxin = Not at all Being so restless that it is hard to sit still: 0 = Not at all Becoming easily annoyed or irritable: 0 = Not at all Feeling afraid as if something awful might happen: 0 = Not at all Total KELLY-7 score (0-4 normal; 5-9 mild; 10-14 moderate; 15-21 severe): 0 Source: Developed by Drs. Jamal Cleaning, Isela Schwarz, Manolo Waggoner and colleagues, with an educational haider from [employer]. Review of Systems Const All systems reviewed & are unremarkable except as noted in HPI and below Reports no additional complaints Eyes Reports no additional complaints ENT Reports no additional complaints Card Reports no additional complaints Resp Reports no additional complaints GI Reports no additional complaints Reports no additional complaints Musc Reports no additional complaints Physical exam (Primary Care) Vital Signs: Last Vital Signs Pulse 67 09/04/23 08:46 BP 110/74 09/04/23 08:46 Pulse Ox 98 09/04/23 08:46 Oxygen Delivery Method Room Air 09/04/23 08:46 BMI result Body Mass Index 25.6 Tobacco/Smoking Status: Tobacco use Status Tobacco use date assessed 09/04/23 09/04/23 08:50 Patient Tobacco Use Status Former Tobacco user 09/04/23 08:40 e-Cigarette/Vaping Use Never Used 09/04/23 08:40 PHQ-9: PHQ-9 Score PHQ-9: Total score 2 09/04/23 08:53 Depression Screening Interpretation: Negative Thrive Assessment: Date of Thrive Assessment Date Thrive assessed 09/04/23 09/04/23 08:53 Const General: no acute distress HENMT Head: Yes normal to inspection General nose exam: Normal external nose present Throat: Yes posterior oropharynx normal Eyes General: appearance normal, both eyes and all related structures Neck Neck: Yes no lymphadenopathy and Yes supple Resp Effort & Inspection: normal respiratory effort Auscultation: clear to auscultation bilaterally Cardio Rhythm: regular rhythm Heart sounds: S1 normal heart sound present and S2 normal heart sound present GI Inspection: Yes normal to inspection Palpation (GI): Soft to palpation Percussion: Yes normal to percussion Auscultation: normal bowel sounds Assessment and Plan Assessment & Plan (1) Hyperlipidemia: Code(s): E78.5 - Hyperlipidemia, unspecified Plan: Continue 30 mg of pravastatin low-cholesterol diet (2) Annual physical exam: Code(s): Z00.00 - Encounter for general adult medical examination without abnormal findings Plan: Well-balanced diet regular exercise discussed with the patient she is up-to-date with mammogram colonoscopy and Pap smear (3) Hyperglycemia: Code(s): R73.9 - Hyperglycemia, unspecified Plan: A1c is 5.6 ADA diet regular physical activity discussed with the patient return in 1 year Orders: Orders Complete Blood Count no Diff 1 Year E78.5 - Hyperlipidemia, unspecified, R73.9 - Hyperglycemia, unspecified, Z00.00 - Encounter for general adult medical examination without abnormal findings TSH reflex Free T4 1 Year E78.5 - Hyperlipidemia, unspecified, R73.9 - Hyperglycemia, unspecified, Z00.00 - Encounter for general adult medical examination without abnormal findings Vitamin D 25-OH Total 1 Year E78.5 - Hyperlipidemia, unspecified, R73.9 - Hyperglycemia, unspecified, Z00.00 - Encounter for general adult medical examination without abnormal findings Lipid Panel 1 Year E78.5 - Hyperlipidemia, unspecified, R73.9 - Hyperglycemia, unspecified, Z00.00 - Encounter for general adult medical examination without abnormal findings Hemoglobin A1c 1 Year E78.5 - Hyperlipidemia, unspecified, R73.9 - Hyperglycemia, unspecified, Z00.00 - Encounter for general adult medical examination without abnormal findings Comprehensive [place]. Panel Fast 1 Year E78.5 - Hyperlipidemia, unspecified, R73.9 - Hyperglycemia, unspecified, Z00.00 - Encounter for general adult medical examination without abnormal findings Coding Level of Care Code Est Pt Prev Care 40-64y(02972) Diagnoses Hyperlipidemia E78.5 Annual physical exam Z00.00 Hyperglycemia R73.9
[2023-09-04 08:46] VITALS: BP 110/74; PULSE 67; O2SAT 98; BMI 25.6
== END 2023-09-04 09:30 | disposition home or self-care (01) ==
PROVIDERS: PCP Internal Medicine; Visit Provider Internal Medicine
DX: E78.5 Hyperlipidemia, unspecified (principal); Z00.00 Encounter for general adult medical examination without abnormal findings; R73.9 Hyperglycemia, unspecified
CPT/HCPCS: 99396

== ENCOUNTER 2023-09-11 09:46 | Outpatient (REF) | payer OTHER, SELFPAY ==
--- NOTE | ~2023-09-11 | MM_ITS ---
EXAMINATION: MM SCREENING DIGITAL BREAST TOMOSYNTHESIS, BILATERAL CLINICAL INFORMATION: Screening. Asymptomatic. COMPARISON: Mammography: 08/10/2022, 08/04/2021, 10/24/2019, and dating back to 2017. Right breast ultrasound 10/24/2019. TECHNIQUE: Digital breast tomosynthesis is performed in both the craniocaudal and mediolateral oblique views along with computer-aided detection (CAD). Synthesized 2D images are generated from the tomosynthesis. FINDINGS: The breasts are heterogeneously dense, which may obscure small masses (ACR BI-RADS breast composition Category c). There are a few scattered benign type calcifications in both breasts, most notably regional left breast central and lower inner aspect. These are unchanged and benign. There is no suspicious grouping or pleomorphism. Stable 6 mm nodule in the upper outer left breast known to represent a cyst. There are no dominant masses, or areas of architectural distortion identified in either breast. There are no skin or axillary abnormalities. MM/MM tomosynthesis screening BI IMPRESSION: No mammographic evidence of malignancy. Stable benign findings. ASSESSMENT: BI-RADS BI-RADS 2 - Benign Findings RECOMMENDATION: Routine annual mammography screening. 1 year F/U This examination should not preclude the clinical evaluation of a suspicious palpable abnormality. This patient's information was entered into a reminder system with a target due date for their next mammogram.
== END 2023-09-11 09:47 | disposition home or self-care (01) ==
LOC: HO.MAMMO 09:46
PROVIDERS: PCP Internal Medicine; Visit Provider Obstetrics & Gynecology
DX: Z12.31 Encounter for screening mammogram for malignant neoplasm of breast (principal)
CPT/HCPCS: 77063; 77067

== ENCOUNTER → 2023-09-11 10:00 | Outpatient (BNV) | payer OTHER, SELFPAY | PROVIDERS: PCP Internal Medicine; Visit Provider Radiology Diagnostic Radiology | DX: Z12.31 Encounter for screening mammogram for malignant neoplasm of breast (principal) | CPT/HCPCS: 77063; 77067 ==

== ENCOUNTER 2024-03-21 10:55 | Outpatient (REF) | payer OTHER, SELFPAY | END 2024-03-21 10:56 | disposition home or self-care (01) | LOC: HO.US 10:55 | PROVIDERS: PCP Internal Medicine; Visit Provider Obstetrics & Gynecology | DX: D21.9 Benign neoplasm of connective and other soft tissue, unspecified (principal); N83.299 Other ovarian cyst, unspecified side | CPT/HCPCS: 76830; 76856 ==

== ENCOUNTER 2024-07-25 10:08 | Outpatient (AMB) | payer OTHER, SELFPAY ==
--- NOTE | 2024-07-25 10:09 | MHC.OFFVIS ---
Intake Visit Reasons: ultrasound results Allergies penicillin V Allergy (Unknown, Verified 09/04/23 08:48) hives Erythromycin Allergy (Unknown, Uncoded 09/04/23 08:48) gi upset HPI Comments Details: The patient is scheduled telehealth visit to discuss the results of pelvic ultrasound done in 05/13 which showed the following: UTERUS: The uterus is anteverted. Size: 6.3 x 3.6 x 5.1 cm. Uterine mass: Intramural uterine masses likely fibroids, 4 of which were seen and measured on today's exam measuring up to 1.9 cm, 1.1 cm and 0.4 cm and 0.6 cm. Cervix: Grossly unremarkable. Endometrium: Borderline thickened endometrial thickness measures 0.4 cm abnormal for postmenopausal status. ADNEXA: Normal Right ovary: Normal in size. Left ovary: Normal in size. Echogenic structure in the left ovary measure up to 1.1 cm, cannot rule out small dermoid. Doppler exam: Normal Doppler flow identified in both ovaries. FREE FLUID: Trace amount of free fluid. OTHER FINDINGS: None 08/11 pelvic ultrasound showed the following: Uterus: The uterus is retroverted and measures 6.7 x 3.4 x 5.5 cm. Nabothian cysts are present in the cervix. The double wall endometrial thickness is 2 mm. The uterus is smooth in contour and has normal myometrial echogenicity. 3 uterine fibroids are seen ranging in size from 0.5 cm to 1.8 cm. At the time of the prior study only 2 fibroids were seen and the smallest 0.5 mm fibroid is new. Adnexa: Both ovaries are visualized. There is normal color flow to the adnexa. There is no ovarian torsion. There is no pelvic ascites or fluid collection. Right ovary measures 1.7 x 1.7 x 1.3 cm for a volume of 2.0 mL. Left ovary measures 2.1 x 0.8 x 1.3 cm for a volume 1.1 mL. Echogenic foci are again seen in the left ovary with probable cluster of calcifications measuring 1.1 x 0.6 x 0.9 cm, similar to prior. 09/10 pelvic MRI was done showed the following: Uterus is retroverted and retroflexed measuring 6.4 x 3.9 x 5.2 cm in size. Endometrial cavity is unremarkable. Endometrial stripe is thin and distinct. Several small T2 dark intramural fibroids are noted. The largest of these is a 1.7 cm anterior right fundal fibroid which demonstrates mild postcontrast enhancement. The left ovary is difficult to separate from the adjacent sigmoid colon but measures approximately 1.7 x 0.9 x 1.2 cm in size. There are a few tiny precontrast T1 bright foci seen within the ovary suggesting tiny regions of blood products. There is no discrete mass otherwise. No abnormal enhancement or irregularity. Extensive colonic diverticulosis more so in the sigmoid colon. Bladder is decompressed and unremarkable. No acute bony abnormality. The contralateral right ovary is also difficult to separate from adjacent structures but measures approximately 1.5 x 1.3 x 1.1 cm in size. CA 125 in 08/10 and 03/12 within normal PFSH Medical History HPV (human papilloma virus) infection Seizure Hip pain, left Tubular adenoma of colon Migraines Hyperlipidemia GERD (gastroesophageal reflux disease) Right sided abdominal pain Surgical History (Updated 09/04/23 @ 09:17 by Leticia Stanley MD) History of cholecystectomy History of esophagogastroduodenoscopy (EGD) Hx of colonoscopy Hx of oral surgery Family History Father Throat cancer Substance use disorder Mother Cardiac arrest Social History Household Members: Spouse Housing: House Alcohol intake: current Alcohol intake frequency: holidays/special occasions only Patient Tobacco Use Status: Former Tobacco user Years Smoked: 10 yrs e-Cigarette/Vaping Use: Never Used Substance Use Type: Marijuana service: No Current occupational status: employed Current occupation: Medical records Cognitive needs: No Hearing needs: No Vision needs: Yes Review of Systems Const All systems reviewed & are unremarkable except as noted in HPI and below Reports as per HPI and Reports no additional complaints GI Reports no additional complaints Reports no additional complaints Telehealth Telehealth Telehealth Platform: Telephone Location of provider rendering services: practice address Location of patient: address on file Patient Identification confirmed using: Name, : Yes Telehealth method: video Patient verbally consented to treatment: Yes Patient verbally consented to billing insurance company: Yes Patient informed of any privacy concerns related to visit: Yes Minutes spent on Phone/Video with Pt.: 11 Assessment & Plan Assessment & Plan (1) Calcification of ovary: Code(s): N83.8 - Other noninflammatory disorders of ovary, fallopian tube and broad ligament Category: Medical Plan: Discussed with the patient the finding on ultrasound showing a left ovarian calcification measuring 1.1 cm not rule out dermoid. CA 125 ordered. Discussed with the patient the main limitation of transvaginal ultrasonography alone as a diagnostic tool to distinguish benign from malignant masses relates to its lack of specificity and low positive predictive value for cancer. The differential diagnosis discussed with the patient includes the following but not limited to: benign and malignant gynecological and non-gynecological causes. Laboratory evaluation include UPT and GC/CT , serum tumor marker CA 125 . Discussed with the patient that CA 125 is a protein associated with epithelial ovarian malignancies, but also frequently expressed at lower levels by nonmalignant tissue. Elevation of CA 125 levels may occur in nonmalignant gynecologic conditions, and in non-gynecologic cancers, It is most useful in postmenopausal women and in identifying non mucinous epithelial cancer. The CA 125 level is elevated in 80% of patients with epithelial ovarian cancer but in only 50% of patients with stage I disease. The overall sensitivity of CA 125 testing in distinguishing benign from malignant adnexal masses reportedly ranges from 61% to 90%; discussed with the patient the specificity, positive predictive value and negative predictive value. Discussed with the patient options of treatment , in case CA 125 is not elevated, including laparoscopy oophorectomy vs. expectant management with repeat US in repeating pelvic US in six-months . If the ovarian complex cyst is persistent larger and / or more complex looking, or higher CA 125 will refer to gynecologic Oncology. All pros, cons, risks and benefits of each approach were discussed with the patient including but not limited to a delay in the diagnosis and treatment of ovarian cancer affecting the prognosis; The patient decided to go ahead with expectant management. Instructions given the patient to schedule a follow-up ultrasound appointment. All questions were answered & the patient verbalized understanding and agreed with the plan. (2) Myoma: Code(s): D21.9 - Benign neoplasm of connective and other soft tissue, unspecified Category: Medical Plan: Discussed with the patient the findings on pelvic ultrasound & the risk of myosarcoma; in addition reviewed with the patient that malignancy and pre malignancy cannot be ruled out without hysterectomy for pathological evaluation ; furthermore, explained to the patient the limitation of pelvic ultrasound and endometrial biopsy in the setting. Discussed with the patient the options of treatment including expectant management versus hysterectomy; the pros and cons, risks benefits of each approach were discussed with the patient including the fact that in cases of myosarcoma, surgical treatment can lead to early diagnosis and positively affects the prognosis; after further discussion, the patient decided to proceed with expectant management. Will repeat pelvic ultrasound periodically. Instructions given to patient to call in case any of the following occurs: pressure symptoms, abnormal uterine bleeding, pelvic pain; and to schedule a six-months pelvic ultrasound (order placed) and a follow-up appointment . All questions answered, the patient verbalized understanding and agreed with the plan . I spent a total of 20 minutes reviewing the chart, talking to the patient via video and documenting in the medical record. Orders: Orders CA-125 Today N83.8 - Other noninflammatory disorders of ovary, fallopian tube and broad ligament US pelvic and transvaginal 6 Months D21.9 - Benign neoplasm of connective and other soft tissue, unspecified, N83.8 - Other noninflammatory disorders of ovary, fallopian tube and broad ligament Coding Level of Care Code Tele Est Pt Level 3 (05754) Diagnoses Calcification of ovary N83.8 Myoma D21.9
== END 2024-07-25 10:54 | disposition home or self-care (01) ==
LOC: HO.HWS 10:08
PROVIDERS: PCP Internal Medicine; Visit Provider Obstetrics & Gynecology
DX: N83.8 Other noninflammatory disorders of ovary, fallopian tube and broad ligament (principal); D21.9 Benign neoplasm of connective and other soft tissue, unspecified
CPT/HCPCS: 99213

== ENCOUNTER → 2024-07-25 10:08 | Outpatient (BNVA) | payer OTHER, SELFPAY | PROVIDERS: PCP Internal Medicine; Visit Provider Obstetrics & Gynecology ==

== ENCOUNTER 2024-10-02 06:21 | Outpatient (REF) | payer OTHER, SELFPAY ==
[2024-10-02 10:50] LABS: Hematocrit 42.4 % (37.0-47.0); Mean Corpuscular Hemoglobin 29.9 pg (27.0-33.0); Mean Corpuscular Volume 90.6 fL (80.0-98.0); Mean Platelet Volume 11.3 fL (9.4-12.3); Platelet Count 243 X10*3/uL (160-400); Red Blood Count 4.68 X10*6/uL (4.20-5.50); Red Cell Distribution Width 13.4 % (11.0-16.0); White Blood Count 5.4 X10*3/uL (4.8-10.8)
[2024-10-02 11:00] LABS: Estimated Average Glucose 114 mg/dL; Hemoglobin A1c % 5.6 % (<6.0); Total Hemoglobin (HGBA1C) 3671.2874 umol/L
[2024-10-02 11:07] LABS: Alanine Aminotransferase 38 U/L (0-31); Albumin Level 4.4 g/dL (3.5-5.0); Alkaline Phosphatase 65 U/L (39-117); Anion Gap 11 (12-20); Aspartate Amino Transferase 36 U/L (5-31); Bilirubin Total 0.7 mg/dL (0.0-1.0); Blood Urea Nitrogen 14 mg/dL (9-16); Calcium 9.6 mg/dL (8.4-10.2); Carbon Dioxide 27 mmol/L (22-29); Chloride 107 mmol/L (96-108); Cholesterol 218 mg/dL (<200); Estimated Glomerular Filt Rate > 60; Glucose Fasting 111 mg/dL (60-99); HDL Cholesterol 60 mg/dL (>40); LDL Cholesterol Calculated 136 mg/dL (<100); Potassium 4.1 mmol/L (3.3-5.1); Sodium 141 mmol/L (135-145); Triglycerides 110 mg/dL (<150)
[2024-10-02 11:26] LABS: TSH reflex Free T4 2.02 uIU/mL (0.32-4.0); Vitamin D 25-OH Total 32.4 ng/mL (>30)
== END 2024-10-02 06:22 | disposition home or self-care (01) ==
LOC: HO.HMGCLDS 06:21
PROVIDERS: PCP Internal Medicine; Visit Provider Internal Medicine
DX: Z00.00 Encounter for general adult medical examination without abnormal findings (principal); E78.5 Hyperlipidemia, unspecified; R73.9 Hyperglycemia, unspecified
CPT/HCPCS: 36415; 80053; 80061; 82306; 83036; 84443; 85027

== ENCOUNTER 2024-10-09 09:23 | Outpatient (AMB) | payer OTHER, SELFPAY ==
[2024-10-09 09:24] VITALS: BP 118/80; PULSE 71; RESP 18; TEMP 36.8; O2SAT 97; BMI 24.3
--- NOTE | 2024-10-09 09:24 | MHC.PC.OV ---
Vital Signs 10/09/24 09:24 Height 5 ft 2 in Weight 133 lb BMI 24.3 BP 118/80 Blood Pressure Location Lt brachial Position Sitting Respiration 18 Pulse 71 Pulse Source Pulse Oximeter Temp 98.3 F Temp Source Oral Pulse Oximetry (%) 97 Oxygen Delivery Method Room Air Intake Visit Reasons: PE Intake Note: Pt is here today for PE. Allergies penicillin V Allergy (Unknown, Verified 10/09/24 09:27) hives Erythromycin Allergy (Unknown, Uncoded 10/09/24 09:27) gi upset Medication List - Last Reconciled 10/09/24 by Leticia Stanley MD pravastatin 20 mg PO DAILY triamcinolone acetonide 0.1% 1 appl topical DAILY Tobacco use date assessed: 10/09/24 Fall risk assessment: No Falls in past year Last assessed Fall Risk: 10/09/24 Dental Screening Dental Screen Date: 10/09/24 Did you have a dental visit in the last 12 months?: Yes Did you have a dental problem in the last 6 months where you did not have access to dental care?: No Was dental information given to patient?: Patient has dentist HPI PE HPI Details Patient presents for physical PFSH Medical History (Updated 10/09/24 @ 10:15 by Leticia Stanley MD) Complex ovarian cyst HPV (human papilloma virus) infection Hip pain, left Tubular adenoma of colon Migraines Hyperlipidemia GERD (gastroesophageal reflux disease) Right sided abdominal pain Surgical History History of cholecystectomy History of esophagogastroduodenoscopy (EGD) Hx of colonoscopy Hx of oral surgery Family History Father Throat cancer Substance use disorder Mother Cardiac arrest Social History Household Members: Spouse Housing: House Alcohol intake: current Alcohol intake frequency: holidays/special occasions only Patient Tobacco Use Status: Former Tobacco user Years Smoked: 10 yrs e-Cigarette/Vaping Use: Never Used Substance Use Type: Marijuana service: No Current occupational status: employed Current occupation: Medical records Cognitive needs: No Hearing needs: No Vision needs: Yes Questionnaire PHQ-9 Over the last 2 weeks, how often have you been bothered by any of the following problems? 1. Little interest or pleasure in doing things: not at all 2. Feeling down, depressed, or hopeless: not at all 3. Trouble falling or staying asleep, or sleeping too much: not at all 4. Feeling tired or having little energy: not at all 5. Poor appetite or overeating: not at all 6. Feeling bad about yourself - or that you are a failure or have let yourself or your family down: not at all 7. Trouble concentrating on things, such as reading the newspaper or watching television: not at all 8. Moving or speaking so slowly that other people could have noticed. Or the opposite - being so fidgety or restless that you have been moving around a lot more than usual: not at all 9. Thoughts that you would be better off or of hurting yourself in some way: not at all Total score: 0 Depression Screening Interpretation: Negative Depression Screening Done: Yes 37636 - PHQ-9 Billing: Yes Source: Developed by Drs. Jamal Cleaning, Isela Schwarz, Manolo Waggoner and colleagues, with an educational haider from [employer]. Thrive Questionnaire Date Thrive assessed: 09/04/23 I am a: Patient What is your living situation today?: I have a steady place to live Within the past 12 months, did the food you bought not last and you didn't have the money to get more?: Often true Within the past 12 months, did you worry whether your food would run out before you got money to buy more?: Often true Do you have trouble paying for medicines?: No Do you have trouble getting transportation to medical appointments?: No Do you have trouble paying your heating and electricity bill?: No Do you have trouble taking care of your child, family member or friend?: No Do you have trouble with day-to-day activities such as bathing, preparing meals, shopping, managing finances, etc.?: No Are you currently unemployed and looking for a job?: No Are you interested in more education?: No Please select the resources that you would like help with: None Currently or been in a relationship where the following occur: I choose not to answer THRIVE Score: 2 AUDIT C Alcohol Use Questionnaire (AUDIT-C) 1. How often do you have a drink containing alcohol?: Never 3. How often do you have six or more drinks on one occasion?: Never Total Score: 0 KELLY-7 AMB Questionnaire KELLY-7 Date KELLY - 7 assessed: 09/04/23 Feeling nervous, anxious, or on edge: 0 = Not at all Not being able to stop or control worryin = Not at all Worrying too much about different things: 0 = Not at all Trouble relaxin = Not at all Being so restless that it is hard to sit still: 0 = Not at all Becoming easily annoyed or irritable: 0 = Not at all Feeling afraid as if something awful might happen: 0 = Not at all Total KELLY-7 score (0-4 normal; 5-9 mild; 10-14 moderate; 15-21 severe): 0 Source: Developed by Drs. Jamal Cleaning, Isela Schwarz, Manolo Waggoner and colleagues, with an educational haider from [employer]. Review of Systems Const All systems reviewed & are unremarkable except as noted in HPI and below Eyes Reports no additional complaints ENT Reports no additional complaints Card Reports no additional complaints Resp Reports no additional complaints GI Reports no additional complaints Reports no additional complaints Physical exam (Primary Care) Vital Signs: Last Vital Signs Temp 98.3 F 10/09/24 09:24 Pulse 71 10/09/24 09:24 Resp 18 10/09/24 09:24 BP 118/80 10/09/24 09:24 Pulse Ox 97 10/09/24 09:24 Oxygen Delivery Method Room Air 10/09/24 09:24 BMI result Body Mass Index 24.3 Tobacco/Smoking Status: Tobacco use Status Tobacco use date assessed 10/09/24 10/09/24 09:29 Patient Tobacco Use Status Former Tobacco user 10/09/24 09:24 e-Cigarette/Vaping Use Never Used 10/09/24 09:24 PHQ-9: PHQ-9 Score PHQ-9: Total score 0 10/09/24 09:29 Depression Screening Interpretation: Negative Thrive Assessment: Date of Thrive Assessment Date Thrive assessed 09/04/23 10/09/24 09:24 Currently or been in a relationship where the following occur: I choose not to answer Const General: no acute distress HENMT Head: Yes normal to inspection Ears: hearing grossly normal bilaterally General nose exam: Normal external nose present Face and sinus: Yes normal facial exam Mouth: Normal oral and palatal mucosa present Teeth and gingiva: dentition normal Throat: Yes posterior oropharynx normal Eyes General: appearance normal, both eyes and all related structures Neck Neck: Yes no lymphadenopathy and Yes supple Resp Effort & Inspection: normal respiratory effort Auscultation: clear to auscultation bilaterally Cardio Rhythm: regular rhythm Heart sounds: S1 normal heart sound present and S2 normal heart sound present GI Inspection: Yes normal to inspection Palpation (GI): Soft to palpation Percussion: Yes normal to percussion Auscultation: normal bowel sounds Coding Level of Care Code Est Pt Prev Care 40-64y(98984) Diagnoses Complex ovarian cyst N83.299 Hyperglycemia R73.9 Annual physical exam Z00.00 Hyperlipidemia E78.5 Additional Codes PHQ-9 - 42468 - PHQ-9 Billing: Yes ([id number]) Assessment & Plan Assessment & Plan (1) Complex ovarian cyst: Comment: calcification possible dermoid by ultrasound 03/2024 f/u Code(s): N83.299 - Other ovarian cyst, unspecified side Category: Medical Plan: Follow-up with telegraph office telephone clerk for periodic ultrasound (2) Hyperglycemia: Code(s): R73.9 - Hyperglycemia, unspecified Category: Medical Plan: A1c is 5.6. A fasting glucose elevated at 112. ADA diet regular exercise discussed with the patient repeat A1c in 6 months (3) Annual physical exam: Code(s): Z00.00 - Encounter for general adult medical examination without abnormal findings Category: Medical Plan: Well-balanced diet regular physical activity discussed with the patient (4) Hyperlipidemia: Code(s): E78.5 - Hyperlipidemia, unspecified Category: Medical Plan: Low-cholesterol diet regular physical activity continue pravastatin. Follow-up in 6 months with a fasting labs before Orders: Orders Comprehensive [place]. Panel Fast 6 Months E78.5 - Hyperlipidemia, unspecified, R73.9 - Hyperglycemia, unspecified Hemoglobin A1c 6 Months E78.5 - Hyperlipidemia, unspecified, R73.9 - Hyperglycemia, unspecified Lipid Panel 6 Months E78.5 - Hyperlipidemia, unspecified, R73.9 - Hyperglycemia, unspecified Medications: Refilled pravastatin 20 mg PO DAILY 90 tabs 3RF
== END 2024-10-09 10:02 | disposition home or self-care (01) ==
LOC: HO.HMCC 09:23
PROVIDERS: PCP Internal Medicine; Visit Provider Internal Medicine
DX: N83.299 Other ovarian cyst, unspecified side (principal); R73.9 Hyperglycemia, unspecified; Z00.00 Encounter for general adult medical examination without abnormal findings; E78.5 Hyperlipidemia, unspecified

== ENCOUNTER → 2024-10-09 09:23 | Outpatient (BNVA) | payer OTHER, SELFPAY | PROVIDERS: PCP Internal Medicine; Visit Provider Internal Medicine | DX: Z00.00 Encounter for general adult medical examination without abnormal findings (principal); N83.299 Other ovarian cyst, unspecified side; R73.9 Hyperglycemia, unspecified; E78.5 Hyperlipidemia, unspecified | CPT/HCPCS: 96127 ==

== ENCOUNTER 2024-12-16 15:35 | Outpatient (REF) | payer OTHER, SELFPAY | END 2024-12-16 15:36 | disposition home or self-care (01) | LOC: HO.MAMMO 15:35 | PROVIDERS: PCP Internal Medicine; Visit Provider Internal Medicine | DX: Z12.31 Encounter for screening mammogram for malignant neoplasm of breast (principal) | CPT/HCPCS: 77063; 77067 ==

== ENCOUNTER → 2024-12-16 15:45 | Outpatient (BNV) | payer OTHER, SELFPAY | PROVIDERS: PCP Internal Medicine; Visit Provider Internal Medicine | DX: Z12.31 Encounter for screening mammogram for malignant neoplasm of breast (principal) | CPT/HCPCS: 77063; 77067 ==

== ENCOUNTER 2025-04-09 06:23 | Outpatient (REF) | payer OTHER, SELFPAY ==
[2025-04-09 11:10] LABS: Alanine Aminotransferase 42 U/L (0-31); Albumin Level 4.6 g/dL (3.5-5.0); Alkaline Phosphatase 68 U/L (39-117); Anion Gap 12 (12-20); Aspartate Amino Transferase 38 U/L (5-31); Blood Urea Nitrogen 12 mg/dL (9-16); Calcium 9.6 mg/dL (8.4-10.2); Carbon Dioxide 28 mmol/L (22-29); Chloride 107 mmol/L (96-108); Cholesterol 211 mg/dL (<200); Estimated Glomerular Filt Rate > 60; HDL Cholesterol 54 mg/dL (>40); Potassium 4.1 mmol/L (3.3-5.1); Sodium 143 mmol/L (135-145); Total Protein 7.1 g/dL (6.5-8.0); Triglycerides 140 mg/dL (<150)
== END 2025-04-09 06:24 | disposition home or self-care (01) ==
LOC: HO.HMGCLDS 06:23
PROVIDERS: PCP Internal Medicine; Visit Provider Internal Medicine
DX: E78.5 Hyperlipidemia, unspecified (principal); R73.9 Hyperglycemia, unspecified
CPT/HCPCS: 36415; 80053; 80061; 83036

== ENCOUNTER 2025-04-21 09:52 | Outpatient (AMB) | payer OTHER, SELFPAY ==
[2025-04-21 10:03] VITALS: BP 124/78; PULSE 72; RESP 16; O2SAT 96; BMI 25.6
--- NOTE | 2025-04-21 10:03 | MHC.PC.OV ---
Vital Signs 04/21/25 10:03 Height 5 ft 2 in Weight 140 lb BMI 25.6 BP 124/78 Blood Pressure Location Lt brachial Position Sitting Respiration 16 Pulse 72 Pulse Source Pulse Oximeter Pulse Oximetry (%) 96 Oxygen Delivery Method Room Air Intake Visit Reasons: 6m f/u Intake Note: Pt us here today for 6 months follow up visit. Allergies penicillin V Allergy (Unknown, Verified 04/21/25 10:11) hives Erythromycin Allergy (Unknown, Uncoded 04/21/25 10:11) gi upset Medication List - Last Reconciled 04/21/25 by Leticia Stanley MD pravastatin 20 mg PO DAILY triamcinolone acetonide 0.1% 1 appl topical DAILY Tobacco use date assessed: 04/21/25 Fall risk assessment: No Falls in past year Last assessed Fall Risk: 04/21/25 Dental Screening Dental Screen Date: 10/09/24 HPI 6m f/u HPI Details Pt presents for hyperlipid and hyperglycemia diet controlled. Patient complains of chronic right upper quadrant abdominal discomfort on and off for 30 years and occasionally loose bowel movement on and off since cholecystectomy.. Patient had negative colonoscopy in [address] of the abdomen and pelvis in March 2025 consistent with mild colonic wall thickening due to colonic underdistention or mild colitis, no diverticuloliits, prominent common bile duct without obstructing lesion consistent with history of cholecystectomy. Patient is established with GI at [facility] Medical History (Updated 04/21/25 @ 10:57 by Leticia Stanley MD) Complex ovarian cyst HPV (human papilloma virus) infection Hip pain, left Tubular adenoma of colon Migraines Hyperlipidemia GERD (gastroesophageal reflux disease) Right sided abdominal pain Surgical History History of cholecystectomy History of esophagogastroduodenoscopy (EGD) Hx of colonoscopy Hx of oral surgery Family History Father Throat cancer Substance use disorder Mother Cardiac arrest Social History Household Members: Spouse Housing: House Alcohol intake: current Alcohol intake frequency: holidays/special occasions only Patient Tobacco Use Status: Former Tobacco user Years Smoked: 10 yrs e-Cigarette/Vaping Use: Never Used Substance Use Type: Marijuana service: No Current occupational status: employed Current occupation: Medical records Cognitive needs: No Hearing needs: No Vision needs: Yes Questionnaire Thrive Questionnaire Date Thrive assessed: 10/09/24 I am a: Patient What is your living situation today?: I have a steady place to live Within the past 12 months, did the food you bought not last and you didn't have the money to get more?: Often true Within the past 12 months, did you worry whether your food would run out before you got money to buy more?: Often true Do you have trouble paying for medicines?: No Do you have trouble getting transportation to medical appointments?: No Do you have trouble paying your heating and electricity bill?: No Do you have trouble taking care of your child, family member or friend?: No Do you have trouble with day-to-day activities such as bathing, preparing meals, shopping, managing finances, etc.?: No Are you currently unemployed and looking for a job?: No Are you interested in more education?: No Please select the resources that you would like help with: None Currently or been in a relationship where the following occur: I choose not to answer THRIVE Score: 2 KELLY-7 AMB Questionnaire KELLY-7 Date KELLY - 7 assessed: 09/04/23 Source: Developed by Drs. Jamal Cleaning, Isela Schwarz, Manolo Waggoner and colleagues, with an educational haider from [employer]. Review of Systems Const All systems reviewed & are unremarkable except as noted in HPI and below Eyes Reports no additional complaints ENT Reports no additional complaints Card Reports no additional complaints Resp Reports no additional complaints GI Reports no additional complaints Reports no additional complaints Physical exam (Primary Care) Vital Signs: Last Vital Signs Pulse 72 04/21/25 10:03 Resp 16 04/21/25 10:03 BP 124/78 04/21/25 10:03 Pulse Ox 96 04/21/25 10:03 Oxygen Delivery Method Room Air 04/21/25 10:03 BMI result Body Mass Index 25.6 Tobacco/Smoking Status: Tobacco use Status Tobacco use date assessed 04/21/25 04/21/25 10:13 Patient Tobacco Use Status Former Tobacco user 04/21/25 10:03 e-Cigarette/Vaping Use Never Used 04/21/25 10:03 Thrive Assessment: Date of Thrive Assessment Date Thrive assessed 10/09/24 04/21/25 10:03 Currently or been in a relationship where the following occur: I choose not to answer Const General: no acute distress HENMT Head: Yes normal to inspection Neck Neck: Yes supple Resp Effort & Inspection: normal respiratory effort Cardio Rhythm: regular rhythm Heart sounds: S1 normal heart sound present and S2 normal heart sound present GI Inspection: Yes normal to inspection Palpation (GI): Soft to palpation Percussion: Yes normal to percussion Auscultation: normal bowel sounds Coding Level of Care Code Est Pt Level 4 (81338) Diagnoses Hyperlipidemia E78.5 Hyperglycemia R73.9 IBS (irritable bowel syndrome) K58.9 Assessment & Plan Assessment & Plan (1) Hyperlipidemia: Code(s): E78.5 - Hyperlipidemia, unspecified Category: Medical Plan: Continue pravastatin low-cholesterol diet (2) Hyperglycemia: Code(s): R73.9 - Hyperglycemia, unspecified Category: Medical Plan: A1c is 5.6, continue ADA diet regular exercise (3) IBS (irritable bowel syndrome): Comment: CT ABDOMEN AND PELVIS 04/14, no acute findings Code(s): K58.9 - Irritable bowel syndrome, unspecified Category: Medical Plan: Supportive care including increasing fiber intake probiotics and well-balanced diet discussed with the patient, she will follow-up with GI Orders: Orders Comprehensive [place]. Panel Fast 6 Months E78.5 - Hyperlipidemia, unspecified, R73.9 - Hyperglycemia, unspecified Complete Blood Count Auto Diff 6 Months E78.5 - Hyperlipidemia, unspecified, R73.9 - Hyperglycemia, unspecified UA w Microscopic 6 Months E78.5 - Hyperlipidemia, unspecified, R73.9 - Hyperglycemia, unspecified Hemoglobin A1c 6 Months E78.5 - Hyperlipidemia, unspecified, R73.9 - Hyperglycemia, unspecified Lipid Panel 6 Months E78.5 - Hyperlipidemia, unspecified, R73.9 - Hyperglycemia, unspecified TSH reflex Free T4 6 Months E78.5 - Hyperlipidemia, unspecified, R73.9 - Hyperglycemia, unspecified
== END 2025-04-21 10:58 | disposition home or self-care (01) ==
LOC: HO.HMCC 09:54
PROVIDERS: PCP Internal Medicine; Visit Provider Internal Medicine
DX: E78.5 Hyperlipidemia, unspecified (principal); R73.9 Hyperglycemia, unspecified; K58.9 Irritable bowel syndrome, unspecified